=== PATIENT | male | born 1960 ===

== ENCOUNTER 2024-02-03 08:22 | Day surgery (SDC) | payer OTHER ==
[~2024-02-03] VITALS: Ht 160 cm; Wt 59.0 kg
[2024-02-03] MEDS ORDERED: MEPERIDINE 100 MG INJ. 100 MG/ML VIAL ONE (09:22)
[2024-02-03] MEDS ORDERED: MIDAZOLAM HCL 5 MG/5 ML VIAL ONE (09:22)
[2024-02-03] MEDS ORDERED: DIPHENHYDRAMINE INJ 50 MG/ML VIAL ONE (10:51)
[2024-02-03 18:09] VITALS: BP_SYST 125; PULSE 79; RESP 17
== END 2024-02-03 12:36 | disposition home or self-care (01) ==
LOC: SDS 08:22 → SMU 08:27 → SDS 12:36
PROVIDERS: ATTEND Student in an Organized Health Care Education/Training Program
DX: Z12.11 Encounter for screening for malignant neoplasm of colon (principal); D12.0 Benign neoplasm of cecum; D12.2 Benign neoplasm of ascending colon; D12.3 Benign neoplasm of transverse colon; D12.4 Benign neoplasm of descending colon; D12.8 Benign neoplasm of rectum; K57.30 Diverticulosis of large intestine without perforation or abscess without bleeding; K64.8 Other hemorrhoids; I10 Essential (primary) hypertension; J44.9 Chronic obstructive pulmonary disease, unspecified; Z79.899 Other long term (current) drug therapy; Z87.891 Personal history of nicotine dependence; Z85.47 Personal history of malignant neoplasm of testis; Z80.0 Family history of malignant neoplasm of digestive organs
CPT/HCPCS: 45385; 88305; J1200; J2175; J2250